=== PATIENT | male | born 2000 | race Caucasian/White ===

== ENCOUNTER 2022-09-28 12:37 | Emergency (ER) | payer MEDICAID, SELFPAY ==
[2022-09-28 12:40] VITALS: BP 165/84; RESP 18; TEMP 36.3; O2SAT 97; BMI 25.7
--- NOTE | 2022-09-28 12:58 | ED_ITS ---
HPI - General Adult General Date Seen: 09/28/22 Chief complaint: Syncope/Fainted Stated complaint: fainted, hit head Time Seen by Provider: 09/28/22 12:40 Source: patient Mode of arrival: ambulatory Limitations: no limitations History of Present Illness HPI narrative: Patient is a 21-year-old who presents after a syncopal episode. He says that he was walking to work when he started to feel lightheaded nauseated and tunnel vision. He says he fell to the ground, hit back of his head. He says that he was by himself at the time but he was at an intersection and someone stopped to check him him. He thinks he was out very briefly, was alert to his surroundings when he woke up. Does not have a hematoma or laceration on his head. Denies significant headache. No neck pain. Has 1 prior episode of syncope, which he said happened just after he had finished working out, when he got back to his car. Similar symptoms in terms of feeling lightheaded nauseated tunnel vision. He has not had palpitations, chest pain shortness of breath. He exercises regularly and generally does not have any trouble at all. He denies recent illness, fevers, vomiting or diarrhea. He does not have chest or abdominal pain now. General health is good. He had an edible last night which he does fairly rarely, he bought that a tobacco store. He is not particularly concerned about other substances. He smokes marijuana a couple times a year drinks rarely. No family history of sudden cardiac although his mom is adopted and he does not know that side of the family's history. Related Data Allergies Allergy/AdvReac Type Severity Reaction Status Date / Time No Known Drug Allergies Allergy Verified 09/28/22 12:40 Review of Systems Status of ROS: Reports: 10 or more systems reviewed and unremarkable except as noted in History and below PFSH PFS Social History Smoking Status: Never smoker Do you use any of these nicotine containing products: None How often do you have a drink containing alcohol: monthly or less How many standard drinks containing alcohol do you have on a typical day: 5 or 6 How often do you have six or more drinks on one occasion: Less than monthly AUDIT-C Alcohol total score: 4 Non-prescribed substance use: marijuana (any form) Exam Narrative: Exam Narrative: Vital signs as noted above. In general, an alert, well-appearing patient. Head: Normocephalic, atraumatic. Eyes: Pupils are equal reactive. Extraocular movements are full. Conjunctivae are normal. ENT: Mucous membranes are moist. Neck: Supple without lymphadenopathy. Heart: Regular rate and rhythm. No murmur or rub. Lungs: Clear bilaterally. No increased work of breathing, crackles or wheezes. Abdomen: Soft and nontender. No organomegaly. Extremities: Well perfused. No edema. No calf tenderness. Pulses intact. Neurologic: Patient is alert and oriented to person and place. Speech is fluent. Face is symmetric. Moves all extremities equally. Affect: Normal. Skin: Warm and dry. Well perfused. Const: Vital Signs, click to edit/add: Vital Signs - 24 hr 09/28/22 12:40 Temperature 97.4 F L Respiratory Rate 18 Blood Pressure [Ri ght Upper Arm] 165/84 H Pulse Oximetry 97 Oxygen Delivery Me thod Room Air Course Course Hospital Course: Overall, syncope is likely due to a vagal spell, but with 2 episodes in 1 happening just after exercise in today with walking, I do not think it would be unreasonable for him to get an outpatient echo to rule out any structural abnormalities. For today, I recommended that we check some basic labs, get an EKG. He declines need for fluids, declines to urine drug screen. He does not have any external evidence of head trauma, does not have any severe headache, vomiting, altered mentation or other symptoms suggesting need for imaging today. Patient continues to feel well. EKG shows a sinus bradycardia, ventricular rate of 56 beats per minute. Normal [place] at 140 milliseconds, normal QT corrected at [address] segment changes, T-wave inversion noted in lead 3. No previous EKGs. His labs are normal, hemoglobin, electrolytes, creatinine, all within normal limits. I think it is reasonable to send him home, discussed that if he has further fainting spells I would recommend he come back to the ER as that would be unexpected. Otherwise, primary care follow-up in the next couple of weeks, consideration of outpatient echo. Defer from use of edibles or other substances until follow-up. Vital Signs Vital signs: Initial Vital Signs Temperature 97.4 F L 09/28/22 12:40 Temperature Source Temporal Artery Scan 09/28/22 12:40 Respiratory Rate 18 09/28/22 12:40 Blood Pressure 165/84 H 09/28/22 12:40 Blood Pressure Mean 111 H 09/28/22 12:40 Blood Pressure Position Sitting 09/28/22 12:40 Pulse Oximetry 97 09/28/22 12:40 Oxygen Delivery Method Room Air 09/28/22 12:40 Vital Signs Temperature 97.4 F L 09/28/22 12:40 Respiratory Rate 18 09/28/22 12:40 Blood Pressure 165/84 H 09/28/22 12:40 Pulse Oximetry 97 09/28/22 12:40 Oxygen Delivery Method Room Air 09/28/22 12:40 Temperature 97.4 F L 09/28/22 12:40 Respiratory Rate 18 09/28/22 12:40 Blood Pressure 165/84 H 09/28/22 12:40 Pulse Oximetry 97 09/28/22 12:40 Oxygen Delivery Method Room Air 09/28/22 12:40 Medical Decision Making Lab Data Labs: Lab Results 09/28/22 Range/Units 13:21 WBC 9.72 (4.50-11.00) K/uL RBC 5.23 (4.30-5.90) m/uL Hgb 15.0 (13.5-17.5) gm/dL Hct 44.7 (37.0-53.0) % MCV 86 (80-100) fL MCH 29 (26-34) pg MCHC 34 (32-36) gm/dL RDW Coeff of Kirill 11.9 (11.5-15.5) % Plt Count 329 (140-440) K/uL Neut % (Auto) 74.1 H (42.0-72.0) % Lymph % (Auto) 19.4 L (20-44) % [place] % (Auto) 5.1 (0.0-11.0) % Eos % (Auto) 1.0 (0.0-7.0) % Baso % (Auto) 0.3 (0.0-3.0) % Neut # (Auto) 7.20 H (1.7-7.0) K/uL Lymph # (Auto) 1.90 (0.90-2.90) K/uL [place] # (Auto) 0.50 (0.00-0.90) K/UL Eos # (Auto) 0.10 (0.00-0.50) K/uL Baso # (Auto) 0.03 (0.00-0.30) K/uL Abs Immat Gran (auto) 0.01 (0.00-0.30) K/uL Imm/Tot Granulo (auto) 0.1 % Sodium 138 (135-149) mmol/L Potassium 4.1 (3.6-5.1) mmol/L Chloride 102 (96-114) mmol/L Carbon Dioxide 27 (20-32) mmol/L BUN 19 (5-24) mg/dL Creatinine 1.0 (0.5-1.5) mg/dL Estimated Creat Clear 135.86 Estimated GFR 110 ml/min Glucose 104 (60-115) mg/dL Calcium 9.1 (8.4-10.6) mg/dL Discharge Plan Discharge Clinical Impression: Syncope Patient Disposition: Home, Self-Care Condition: Stable Instructions: Syncope (DC) Additional Instructions: I would recommend primary care follow-up in the next couple of weeks, consider outpatient echo to evaluate for any structural abnormalities. Your evaluation here is normal, EKG is within normal limits and labs are normal. If you have any recurrent fainting spells return to the emergency department. Follow Up/Referrals: Priscila Ervin, [Referring] - Stand Alone Forms: [facility], [place] Info Instructions
[2022-09-28 13:28] LABS: Basophils Absolute Auto 0.03 K/uL (0.00-0.30); Basophils Percent Auto 0.3 % (0.0-3.0); Hematocrit 44.7 % (37.0-53.0); Immature Granulocytes Abs Auto 0.01 K/uL (0.00-0.30); Immature Granulocytes Pct Auto 0.1 %; Lymphocytes Percent Auto 19.4 % (20-44); Mean Corpuscular HGB Conc 34 gm/dL (32-36); Mean Corpuscular Hemoglobin 29 pg (26-34); Mean Corpuscular Volume 86 fL (80-100); Monocytes Percent Auto 5.1 % (0.0-11.0); Neutrophils Percent Auto 74.1 % (42.0-72.0); Platelet Count* 329 K/uL (140-440); RDW Coefficient of Variation % 11.9 % (11.5-15.5); Red Blood Count 5.23 m/uL (4.30-5.90); White Blood Count* 9.72 K/uL (4.50-11.00)
[2022-09-28 13:29] LABS: Slide Review Reflex No
[2022-09-28 13:43] LABS: Chloride* 102 mmol/L (96-114); Potassium* 4.1 mmol/L (3.6-5.1); Sodium* 138 mmol/L (135-149)
[2022-09-28 13:46] LABS: Blood Urea Nitrogen* 19 mg/dL (5-24); Carbon Dioxide* 27 mmol/L (20-32); Est. Creatinine Clearance* 135.86; Estimated Glomerular Filt Rate 110 ml/min; Glucose* 104 mg/dL (60-115)
[2022-09-28 13:47] LABS: Calcium* 9.1 mg/dL (8.4-10.6)
[2022-09-28 14:17] VITALS: BP 115/78; PULSE 57; RESP 14; O2SAT 97
== END 2022-09-28 14:18 | disposition home or self-care (01) ==
PROVIDERS: Emergency Provider Emergency Medicine; PCP Family Medicine
DX: R55 Syncope and collapse (principal)
CPT/HCPCS: 36415; 80048; 85025; 93005; 99283; 99284